=== PATIENT | female | born 1955 | race Caucasian/White ===

== ENCOUNTER 2017-01-21 12:33 | Emergency (ER) | payer BC ==
[2017-01-21 12:45] VITALS: BP 180/80; PULSE 72; RESP 18; TEMP 98.5
[2017-01-21] MEDS ORDERED: MORPHINE SULFATE 10 MG/ML SYRINGE IM STA (12:55)
--- NOTE | 2017-01-21 12:58 | ED ---
Upper Extremity HPI - General Chief Complaint: Extremity Injury, Upper Stated Complaint: Fall-Collarbone Pain Time Seen by Provider: 01/21/17 12:47 Source: patient, RN notes reviewed, old records reviewed Mode of arrival: ambulatory Limitations: no limitations - History of Present Illness Initial Comments: 61-year-old female presents emergency Department chief complaint of left shoulder and clavicle pain. Patient reports that she was sitting on the edge of her deck and the chair was too closely edge. She reports that the chair and her fell backward and she landed on her left shoulder and clavicle. She reports that she felt a crunch. She stated she has pain whenever she moves her left arm and shoulder. Denies any elbow or wrist or hand pain. She denies any peripheral paresthesia. Patient states that she's never had any previous fractures or injuries to her left shoulder. Patient states that she has difficulty with range of motion cause the pain to be much worse.Patient denies any recent fever, chills, shortness of breath, chest pain, back pain, abdominal pain, nausea vomiting, numbness or tingling, dysuria or hematuria, constipation or diarrhea, headaches or visual changes, or any other current symptoms - Related Data Home Medications Medication Instructions Recorded Confirmed Cholecalciferol [Vitamin D3] 1,000 unit PO DAILY 01/21/17 01/21/17 Turmeric Root Extract [Turmeric] 500 mg PO DAILY 01/21/17 01/21/17 Ubidecarenone [Co Q-10] 100 mg PO DAILY 01/21/17 01/21/17 Previous Rx's Medication Instructions Recorded HYDROcodone/APAP 10-325MG [[place] 1 tab PO Q6H PRN #20 tab 01/21/17 10-325] Allergies Allergy/AdvReac Type Severity Reaction Status Date / Time No Known Allergies Allergy Verified 01/21/17 13:11 Review of Systems ROS Statement: Those systems with pertinent positive or pertinent negative responses have been documented in the HPI. ROS Other: All systems not noted in ROS Statement are negative. Past Medical History Additional Past Medical History / Comment(s): celiac disease auto immune History of Any Multi-Drug Resistant Organisms: None Reported Past Surgical History: Tonsillectomy Past Psychological History: No Psychological Hx Reported Smoking Status: Never smoker Past Alcohol Use History: Occasional Past Drug Use History: None Reported General Exam - General Exam Comments Initial Comments: This is a 61-year-old female. No acute distress. Limitations: no limitations General appearance: alert, in no apparent distress Head exam: Present: atraumatic, normocephalic, normal inspection Eye exam: Present: normal appearance, PERRL, EOMI. Absent: scleral icterus, conjunctival injection, periorbital swelling ENT exam: Present: normal exam, mucous membranes moist Neck exam: Present: normal inspection. Absent: tenderness, meningismus, lymphadenopathy Respiratory exam: Present: normal lung sounds bilaterally. Absent: respiratory distress, wheezes, rales, rhonchi, stridor Cardiovascular Exam: Present: regular rate, normal rhythm, normal heart sounds. Absent: systolic murmur, diastolic murmur, rubs, gallop, clicks GI/Abdominal exam: Present: soft, normal bowel sounds. Absent: distended, tenderness, guarding, rebound, rigid Extremities exam: Present: normal inspection, full ROM, normal capillary refill. Absent: tenderness, pedal edema, joint swelling, calf tenderness Left Shoulder Exam: Present: tenderness (Is tender over the clavicle. She reports some mild tenderness over the before meals joint.), tenderness over AC joint. Absent: normal inspection (Patient has noted deformity over the left clavicle.) , full ROM (Patient has difficulty with range of motion due to significant pain. ) Upper Arm exam: Present: normal inspection, full ROM Elbow exam: Present: normal inspection, full ROM Forearm Wrist exam: Present: normal inspection, full ROM Hand Wrist exam: Present: normal inspection, full ROM Vascular: Present: normal capillary refill Back exam: Present: normal inspection Neurological exam: Present: alert, oriented X3, CN II-XII intact Psychiatric exam: Present: normal affect, normal mood Skin exam: Present: warm, dry, intact, normal color. Absent: rash Course Vital Signs 01/21/17 12:42 Temperature 98.5 F Pulse Rate 72 Respiratory 18 Rate Blood Pressure 180/80 O2 Sat by Pulse 97 Oximetry Medical Decision Making - Medical Decision Making 61-year-old female presents emergency Department chief complaint of left shoulder and clavicle pain. Patient reports that she was sitting on the edge of her deck and the chair was too closely edge. She reports that the chair and her fell backward and she landed on her left shoulder and clavicle. She reports that she felt a crunch. She stated she has pain whenever she moves her left arm and shoulder. Denies any elbow or wrist or hand pain. She denies any peripheral paresthesia. Patient states that she's never had any previous fractures or injuries to her left shoulder. Patient has noted deformity over the left clavicle. She has difficulty with range of motion of left shoulder. She is given ice and clavicle and shoulder x-rays are obtained. She does have good capillary refill and normal sensation distally.Clavicle x-ray shows comminuted mid left clavicular fracture with AC joint widening and concern for underlying acromioclavicular ligamentous injury. Patient is given 5 mg of IM morphine. Patient was given a sling. We discussed this case with Dr. Silver environmental services coordinator orthopedic. He recommends putting the patient in sling and having her follow-up tomorrow at the office. Patient agrees to treatment plan will comply. Return parameters were discussed. She also be given a prescription for pain medication. - Radiology Data Radiology results: report reviewed No evidence of humeral fracture dislocation. No displaced scapular fracture. There is comminuted midclavicular fracture with mild before meals joint widening. Clavicle x-ray shows comminuted mid left clavicular fracture with AC joint widening and concern for underlying acromioclavicular ligamentous injury. There is widening of the AC joint measuring 6.6 mm. Disposition Clinical Impression: Closed left clavicular fracture Disposition: HOME SELF-CARE Condition: Good Instructions: Clavicle Fracture (ED) Additional Instructions: Patient advised to put ice over the shoulder is much as possible. Remain in the sling. Follow-up with orthopedic physician tomorrow. Return to the emergency department if any alarming signs or symptoms occur. Take the medication as prescribed. Prescriptions: HYDROcodone/APAP 10-325MG [[place] 10-325] 1 tab PO Q6H PRN #20 tab PRN Reason: Pain Referrals: None,Stated [Primary Care Provider] - 1-2 days Everett Silver MD [STAFF PHYSICIAN] - 1-2 days Time of Disposition: 14:47
--- NOTE | 2017-01-21 13:14 | XR ---
EXAMINATION TYPE: XR clavicle LT DATE OF EXAM: 01/21/2017 COMPARISON: NONE HISTORY: Fall with limited range of motion TECHNIQUE: 2 views of the left clavicle were obtained. FINDINGS: There is a comminuted mid left clavicular fracture with foreshortening. There is overlap of the distal and proximal fracture fragments of approximately 1.8 cm. Additionally there is widening o f the acromioclavicular joint as it measures 6.6 mm. There is superior displacement and angulation of the proximal fracture fragment and inferior displacement of the distal fracture fragment. Overlying soft tissue swelling is evident. IMPRESSION: Comminuted mid left clavicular fracture with acromioclavicular joint widening and concern for underlying acromioclavicular ligamentous injury.
--- NOTE | 2017-01-21 13:18 | XR ---
EXAMINATION TYPE: XR shoulder complete LT DATE OF EXAM: 01/21/2017 COMPARISON: Clavicular radiographs of the same date. HISTORY: Pain after fall with limited range of motion. TECHNIQUE: 3 views of the left shoulder were obtained. FINDINGS: There is no evidence of proximal humeral fracture or dislocation. There is redemonstration of a comminuted mid left clavicular fracture described on the clavicular radiographs of the same date . There is no displaced fracture of the glenoid. There is redemonstration of acromioclavicular joint widening of up to 6.5 mm. IMPRESSION: 1. No evidence of humeral fracture or dislocation. No displaced scapular fracture. 2. Redemonstration of a comminuted mid clavicular fracture with mild acromioclavicular joint widening .
== END 2017-01-21 15:01 | disposition home or self-care (01) ==
LOC: EC 12:33
DX: S42.002A Fracture of unspecified part of left clavicle, initial encounter for closed fracture (principal); K90.0 Celiac disease; Z79.899 Other long term (current) drug therapy; W07.XXXA Fall from chair, initial encounter
CPT/HCPCS: 99284; 96372; 73030; 73000; J2270

== ENCOUNTER → 2017-04-05 | Outpatient (CLI) | payer BC ==
[2017-04-05 09:07] LABS: Basophils # (A) 0.1 k/uL (0-0.2); Basophils % (A) 1 %; CH 30.8; CHCM 33.1; Eosinophils # (A) 0.1 k/uL (0-0.7); Eosinophils % (A) 2 %; HDW 2.23; HGB 14.8 gm/dL (11.4-16.0); Luc # (Auto) 0.11; Luc % (Auto) 2; Lymphocytes # (A) 1.8 k/uL (1.0-4.8); Lymphocytes % (A) 36 %; MCHC 32.1 g/dL (31.0-37.0); MCV 93.5 fL (80.0-100.0); Mean Platelet Volume 8.1; Monocytes # (A) 0.3 k/uL (0-1.0); Monocytes % (A) 5 %; Neutrophils # (A) 2.7 k/uL (1.3-7.7); Neutrophils % (A) 53 %; RBC 4.92 m/uL (3.80-5.40); RDW 13.5 % (11.5-15.5); WBC (Perox) 4.28
[2017-04-05 09:42] LABS: ALT 35 U/L (9-52); AST 22 U/L (14-36); Alkaline Phosphatase 67 U/L (38-126); Anion Gap 14 mmol/L; Blood Urea Nitrogen 20 mg/dL (7-17); Calcium 9.7 mg/dL (8.4-10.2); Carbon Dioxide 21 mmol/L (22-30); Chloride 107 mmol/L (98-107); Cholesterol 270 mg/dL (<200); Glucose 90 mg/dL (74-99); HDL Cholesterol 54 mg/dL (40-60); Non-African American GFR(MDRD) >60 (>60 ml/min/1.73 sqM); Potassium 4.2 mmol/L (3.5-5.1); Sodium 142 mmol/L (137-145); Total Protein 7.5 g/dL (6.3-8.2)
[2017-04-05 10:37] LABS: Erythrocyte Sedimentation Rate 12 mm/hr (0-20)
[2017-04-05 16:55] LABS: Hepatitis B Surface Antibody Non-Reactive (Non-Reactive)
== END | disposition home or self-care (01) ==
LOC: LABWHC1 08:17
PROVIDERS: ATTEND Internal Medicine
DX: E55.9 Vitamin D deficiency, unspecified (principal); I10 Essential (primary) hypertension; E78.2 Mixed hyperlipidemia; R53.83 Other fatigue
CPT/HCPCS: 36415; 80053; 80061; 82306; 84439; 84443; 84481; 85025; 85652; 86705; 86706; 86709; 86803; 87340

== ENCOUNTER → 2017-07-23 | Outpatient (CLI) | payer BC ==
--- NOTE | 2017-07-23 15:10 | XR ---
EXAMINATION TYPE: XR Hip RT and AP Pelvis DATE OF EXAM: 07/23/2017 COMPARISON: NONE HISTORY: Right hip pain per order. Bursitis per prescription. TECHNIQUE: A single AP view of the pelvis is obtained. Two views of the right hip are obtained. FINDINGS: There is no acute fracture/dislocation evident in the pelvis. The sacroiliac joints appea r symmetric and unremarkable. The overlying soft tissue appears unremarkable. Two views of right hip show no acute fracture or dislocation. No focal lytic or sclerotic lesion see n in the proximal right femur. There is mild axial joint space loss in the right hip slightly less pr ominent than left hip were there is moderate superior joint space loss. Mild acetabular spurring is p resent bilaterally. The overlying soft tissue is unremarkable. IMPRESSION: There is mild degenerative change right hip felt slightly less prominent than opposite l eft hip.
--- NOTE | 2017-07-23 15:14 | XR ---
EXAMINATION TYPE: XR lumbosacral spine min 4V DATE OF EXAM: 07/23/2017 CLINICAL HISTORY: Low back pain. TECHNIQUE: Frontal, lateral, and oblique images of the lumbar spine are obtained. COMPARISON: None FINDINGS: There are 5 lumbar type vertebral bodies identified. The lumbar spine shows satisfactory alignment without evidence of acute fracture or dislocation. Vertebral body heights and disk space he ights are within normal limits. The oblique images appear within normal limits. Mild vascular calci fication of overlying abdominal aorta is present. IMPRESSION: No significant abnormality is seen to account for patient's symptoms.
== END | disposition home or self-care (01) ==
LOC: RADXRMAIN 14:35
PROVIDERS: ATTEND Internal Medicine
DX: M25.551 Pain in right hip (principal); M54.5 Low back pain
CPT/HCPCS: 72110; 73502

== ENCOUNTER → 2021-03-02 | Outpatient (CLI) | payer MEDICARE ==
[2021-03-02 23:03] LABS: Basophils # (A) 0.05 X 10*3/uL (0.00-0.10); Basophils % (A) 0.8 %; Eosinophils # (A) 0.12 X 10*3/uL (0.04-0.35); HCT 39.1 % (37.2-46.3); HGB 12.6 g/dL (12.0-15.0); Lymphocytes # (A) 2.23 X 10*3/uL (0.90-5.00); Lymphocytes % (A) 36.3 %; MCHC 32.2 g/dL (32.0-37.0); MCV 93.1 fL (80.0-97.0); Monocytes # (A) 0.43 X 10*3/uL (0.20-1.00); Neutrophils % (A) 53.7 %; Platelet Count 256 X 10*3/uL (140-440); RDW 12.1 % (11.5-14.5); WBC 6.14 X 10*3/uL (4.50-10.00)
[2021-03-03 00:17] LABS: Erythrocyte Sedimentation Rate 16 mm/Hr (0-30)
[2021-03-03 05:14] LABS: Cyclic Citrull Pep IgG Unit <0.5 U/mL; Cyclic Citrullinated Pep IgG NEGATIVE (NEGATIVE)
[2021-03-03 06:00] LABS: Anti-DNA, DS unit <1.0 IU/mL; Centromere Antibody <0.2 AI; Centromere Antibody Interp NEGATIVE (NEGATIVE); DNA Double-Stranded NEGATIVE (NEGATIVE); Scleroderma SC-70 Ab <0.2 AI
[2021-03-03 07:25] LABS: African American GFR (CKD) 60.2 (60.0-200.0); Albumin 4.8 g/dL (3.80-4.90); Anion Gap 11.5 mmol/L (4.00-12.00); BUN/Creat Ratio 16.36 Ratio (12.00-20.00); Calcium 9.8 mg/dL (8.7-10.3); Carbon Dioxide 24.5 mmol/L (21.6-31.8); Globulin 2.4 g/dL (1.6-3.3); Non-African American GFR(CKD) 51.9 (60.0-200.0); Potassium 4.2 mmol/L (3.5-5.5); Total Bilirubin 1.1 mg/dL (0.3-1.2); Total Protein 7.2 g/dL (6.2-8.2); Uric Acid 4.8 mg/dL (2.9-7.7)
== END | disposition home or self-care (01) ==
LOC: LABWHC1 15:51
PROVIDERS: ATTEND Internal Medicine
DX: M25.50 Pain in unspecified joint (principal)
CPT/HCPCS: 36415; 80053; 82550; 84443; 84550; 85025; 85652; 86038; 86200; 86225; 86235; 86431

== ENCOUNTER → 2022-05-04 | Outpatient (CLI) | payer MEDICARE | END | disposition home or self-care (01) | LOC: LABWHC1 09:26 | PROVIDERS: ATTEND Internal Medicine Rheumatology | DX: Z53.9 Procedure and treatment not carried out, unspecified reason (principal) ==